=== PATIENT | female | born 1945 | race Caucasian/White ===

== ENCOUNTER 2023-03-17 15:54 | Emergency (ER) | payer MEDICARE ==
[2023-03-17] MEDS ORDERED: Lidocaine 4% Cream 5 GM TUBE w/ Tegaderm ONE (16:07)
[2023-03-17] MEDS ORDERED: Boostrix 0.5 ML (Tdap) VIAL (>/=7 yrs of age) ONE (16:09)
[2023-03-17] MEDS ORDERED: HYDROcodone/Acetaminophen 10/325 mg Tablet ONE (16:45)
[2023-03-17] MEDS ORDERED: Bacitracin 1 PK ONE (16:45)
== END 2023-03-17 17:00 | disposition home or self-care (01) ==
LOC: BURERS 15:54
DX: S32.030A Wedge compression fracture of third lumbar vertebra, initial encounter for closed fracture (principal); S32.040A Wedge compression fracture of fourth lumbar vertebra, initial encounter for closed fracture; S32.050A Wedge compression fracture of fifth lumbar vertebra, initial encounter for closed fracture; S01.01XA Laceration without foreign body of scalp, initial encounter; S09.90XA Unspecified injury of head, initial encounter; S90.414A Abrasion, right lesser toe(s), initial encounter; W22.03XA Walked into furniture, initial encounter; Z86.718 Personal history of other venous thrombosis and embolism; I10 Essential (primary) hypertension; Z79.01 Long term (current) use of anticoagulants; Z86.711 Personal history of pulmonary embolism; Z79.899 Other long term (current) drug therapy
CPT/HCPCS: 12002; 70450; 72125; 72131; 90471; 90715

== ENCOUNTER 2023-05-17 23:09 | Inpatient (IN) | payer MEDICARE ==
[2023-05-17 23:43] LABS: #Basophils 0.1 thou/uL (0.0-0.2); #Eosinphils 0.1 thou/uL (0.0-0.7); #Lymphocytes 2.5 thou/uL (1.20-3.40); #Monocytes 0.8 thou/uL (0.11-0.59); %Basophils 0.9 % (0.0-1.0); %Lymphocytes 20.3 % (21.0-51.0); %Monocytes 6.1 % (0.0-10.0); %Neutrophils 71.7 % (42.0-75.0); Hemoglobin 15.2 g/dL (12.0-16.0); Mean Corpuscular HGB CONC 33.6 g/dL (32.0-36.0); Mean Corpuscular Hemoglobin 30.3 pg (27.0-31.0); Mean Corpuscular Volume 90.2 fl (78.0-98.0); Mean Platelet Volume 8.6 fL (7.4-10.4); Platelet Count 227 10x3/uL (130-400); RBC Distribution Width 13.4 % (11.5-14.5); White Blood Cell (WBC) Count 12.5 10x3/uL (4.8-10.8)
[2023-05-17] MEDS ORDERED: Famotidine/PF 20 mg/2ml Vial ONE (23:45)
[2023-05-17] MEDS ORDERED: Vancomycin 1 GM VIAL ONE (23:45)
[2023-05-17] MEDS ORDERED: Ondansetron PF 4 MG/2 ML Vial ONE (23:45)
[2023-05-17] MEDS ORDERED: metroNIDAZOLE 500 MG/100 ML BAG ONE (23:59)
[2023-05-18] LABS: ALT (SGPT) 38 U/L (8-55); AST (SGOT) 39 U/L (5-34); Albumin 3.4 g/dL (3.4-4.8); Alkaline Phosphatase 136 U/L (40-110); Anion Gap 18 mmol/L (10-20); BUN (Urea Nitrogen) 18 mg/dL (9.8-20.1); Bilirubin, Total 1.2 mg/dL (0.2-1.2); Calc. Creatinine Clearance 0 mL/min (70-130); Calcium 9.5 mg/dL (7.8-10.44); Carbon Dioxide 20 mmol/L (23-31); Chloride 105 mmol/L (98-107); Estimated GFR 62; Globulin 3.5 g/dL (2.4-3.5); Glucose 107 mg/dL (83-110); Lipase 26 U/L (8-78); Potassium 3.7 mmol/L (3.5-5.1); Protein, Total 6.9 g/dL (5.8-8.1); Sodium 139 mmol/L (136-145)
[2023-05-18] MEDS ORDERED: Ondansetron ODT 4 MG TAB SL PRN (02:15)
[2023-05-18] MEDS ORDERED: Acetaminophen 325 MG TAB PO PRN (02:15)
[2023-05-18] MEDS ORDERED: Ondansetron PF 4 MG/2 ML Vial IVP PRN (02:15)
[2023-05-18] MEDS: Dextrose 5 % And 0.9 % NaCl 1,000 ML IV SCH ×2 (02:16→12:48)
[2023-05-18 04:16] VITALS: BMI 53.8
[2023-05-18 04:35] LABS: Bilirubin Negative (Negative); Blood, Urine Small (Negative); Clarity Clear (Clear); Glucose, Urine (Dipstick) Negative (Negative); Ketone, Urine Negative (Negative); Leukocyte Small (Negative); Nitrite Negative (Negative); Protein, Urine (Dipstick) Negative (Neg-Trace); Urobilinogen 0.2 mg/dL (Less than 2); pH, Urine 5.5 (5.0-9.0)
[2023-05-18 04:43] LABS: CAUTI Indications for Culture Pelvic or flank pain; RBC/HPF 0-3 HPF (0-3); Squamous Epithelial 0-3 HPF (0-3)
[2023-05-18 04:44] LABS: Bacteria/HPF Rare-Few HPF (None Seen); Yeast-Budding 1+ HPF (None Seen)
[2023-05-18 04:45] LABS: Urine Culture Reflex No No
[2023-05-18] MEDS ORDERED: Levothyroxine Sodium 100 MCG TAB PO SCH (08:45)
[2023-05-18] MEDS ORDERED: Dicyclomine 20 MG TAB PO PRN (08:53)
[2023-05-18] MEDS ORDERED: Mometasone/Formoterol 200/5 60 PUFF INH SCH (09:00)
[2023-05-18] MEDS ORDERED: metroNIDAZOLE 250 MG TAB PO SCH (09:00)
[2023-05-18] MEDS: Montelukast Sodium 10 mg Tablet PO SCH (09:36)
[2023-05-18] MEDS: Lisinopril 20 MG TAB PO SCH (09:37)
[2023-05-18] MEDS: Mometasone/Formoterol 60 PUFF AER INH SCH ×2 (09:37→20:47)
[2023-05-18] MEDS: Colestipol 1 GM TAB PO SCH ×2 (09:40→20:46)
[2023-05-18] MEDS: Rivaroxaban 10 MG TAB PO SCH (19:45)
[2023-05-18] MEDS: Nystatin Cream 15 GM TUBE TOP SCH (20:47)
[2023-05-18] MEDS: Acetaminophen 500 MG TAB PO PRN (20:48)
[2023-05-18] MEDS: Sodium Chloride 0.9% 1,000 ML IV SCH (20:59)
[2023-05-18] MEDS: Benzonatate 100 MG CAP PO PRN (21:30)
[2023-05-19] MEDS: Levothyroxine Sodium 100 MCG TAB PO SCH (05:46)
[2023-05-19] MEDS: Lisinopril 20 MG TAB PO SCH (09:53)
[2023-05-19] MEDS: Colestipol 1 GM TAB PO SCH ×2 (09:53→18:23)
[2023-05-19] MEDS: Mometasone/Formoterol 60 PUFF AER INH SCH ×2 (09:54→21:21)
[2023-05-19] MEDS: Montelukast Sodium 10 mg Tablet PO SCH (09:55)
[2023-05-19] MEDS: Nystatin Cream 15 GM TUBE TOP SCH ×3 (09:56→21:23)
[2023-05-19] MEDS: Sodium Chloride 0.9% 1,000 ML IV SCH (10:02)
[2023-05-19] MEDS: Acetaminophen 500 MG TAB PO PRN (10:06)
[2023-05-19] MEDS: Vancomycin HCl 25 MG/ML ORAL SOLN PO SCH ×3 (13:13→23:47)
[2023-05-19] MEDS: Guaifenesin DM 100-10/5 ML UDCUP PO PRN (13:22)
[2023-05-19] MEDS: Rivaroxaban 10 MG TAB PO SCH (17:08)
[2023-05-20] MEDS: Vancomycin HCl 25 MG/ML ORAL SOLN PO SCH ×3 (04:53→17:24)
[2023-05-20] MEDS: Levothyroxine Sodium 100 MCG TAB PO SCH (04:53)
[2023-05-20] MEDS: Guaifenesin DM 100-10/5 ML UDCUP PO PRN ×2 (04:53→10:55)
[2023-05-20] MEDS: Nystatin Cream 15 GM TUBE TOP SCH ×2 (09:13→21:54)
[2023-05-20] MEDS: Mometasone/Formoterol 60 PUFF AER INH SCH ×2 (09:14→21:45)
[2023-05-20] MEDS: Lisinopril 20 MG TAB PO SCH (09:16)
[2023-05-20] MEDS: Montelukast Sodium 10 mg Tablet PO SCH (09:17)
[2023-05-20] MEDS: Colestipol 1 GM TAB PO SCH ×2 (12:56→21:40)
[2023-05-20] MEDS: Rivaroxaban 10 MG TAB PO SCH (16:57)
[2023-05-20] MEDS: Benzonatate 100 MG CAP PO PRN (22:10)
[2023-05-21] MEDS: Temazepam 15 MG CAP PO PRN ×2 (00:38→20:53)
[2023-05-21] MEDS: Vancomycin HCl 25 MG/ML ORAL SOLN PO SCH ×4 (00:39→16:44)
[2023-05-21] MEDS: Levothyroxine Sodium 100 MCG TAB PO SCH (05:20)
[2023-05-21 05:22] LABS: #Basophils 0.1 thou/uL (0.0-0.2); #Eosinphils 0.1 thou/uL (0.0-0.7); #Lymphocytes 1.5 thou/uL (1.20-3.40); #Monocytes 0.4 thou/uL (0.11-0.59); #Neutrophils 4.6 thou/uL (1.40-6.50); %Basophils 1.2 % (0.0-1.0); %Eosinophils 1.4 % (0.0-10.0); %Lymphocytes 21.9 % (21.0-51.0); %Monocytes 6.5 % (0.0-10.0); Hemoglobin 12.7 g/dL (12.0-16.0); Mean Corpuscular HGB CONC 33.6 g/dL (32.0-36.0); Mean Corpuscular Hemoglobin 30.5 pg (27.0-31.0); Mean Corpuscular Volume 90.9 fl (78.0-98.0); Platelet Count 134 10x3/uL (130-400); Red Blood Cell (RBC) Count 4.17 mill/uL (4.20-5.40); White Blood Cell (WBC) Count 6.7 10x3/uL (4.8-10.8)
[2023-05-21 05:34] LABS: ALT (SGPT) 32 U/L (8-55); AST (SGOT) 34 U/L (5-34); Albumin 2.8 g/dL (3.4-4.8); Alkaline Phosphatase 115 U/L (40-110); Anion Gap 10 mmol/L (10-20); BUN (Urea Nitrogen) 12 mg/dL (9.8-20.1); Bilirubin, Total 0.6 mg/dL (0.2-1.2); Calc. Creatinine Clearance 161 mL/min (70-130); Calcium 9.1 mg/dL (7.8-10.44); Carbon Dioxide 23 mmol/L (23-31); Chloride 111 mmol/L (98-107); Estimated GFR 88; Globulin 2.6 g/dL (2.4-3.5); Glucose 98 mg/dL (83-110); Potassium 4.3 mmol/L (3.5-5.1); Protein, Total 5.4 g/dL (5.8-8.1); Sodium 140 mmol/L (136-145)
[2023-05-21] MEDS: Colestipol 1 GM TAB PO SCH ×2 (08:04→15:07)
[2023-05-21] MEDS: Lisinopril 20 MG TAB PO SCH (09:05)
[2023-05-21] MEDS: Montelukast Sodium 10 mg Tablet PO SCH (09:05)
[2023-05-21] MEDS: Nystatin Cream 15 GM TUBE TOP SCH ×2 (09:06→20:53)
[2023-05-21] MEDS: Mometasone/Formoterol 60 PUFF AER INH SCH ×2 (09:07→20:54)
[2023-05-21] MEDS: Benzonatate 100 MG CAP PO PRN (12:23)
[2023-05-21] MEDS: Acetaminophen 500 MG TAB PO PRN (12:26)
[2023-05-21 14:10] VITALS: BP 155/68; TEMP 97.8
[2023-05-21] MEDS: Rivaroxaban 10 MG TAB PO SCH (16:45)
== END 2023-05-21 21:45 | disposition swing bed (61) | DRG 372 ==
LOC: BURERS 23:09 → BURMED 05-18 01:35 → BURERS 05-18 01:48 → BURMED 05-21 01:06
PROVIDERS: ADMIT Family Medicine; ATTEND Family Medicine
DX: A04.72 Enterocolitis due to Clostridium difficile, not specified as recurrent (principal); Z68.43 Body mass index [BMI] 50.0-59.9, adult; E86.0 Dehydration; J45.909 Unspecified asthma, uncomplicated; I10 Essential (primary) hypertension; E03.9 Hypothyroidism, unspecified; G89.29 Other chronic pain; E66.01 Morbid (severe) obesity due to excess calories; R05.9 Cough, unspecified; G47.00 Insomnia, unspecified; Z86.718 Personal history of other venous thrombosis and embolism; Z86.711 Personal history of pulmonary embolism; Z98.890 Other specified postprocedural states; Z90.49 Acquired absence of other specified parts of digestive tract; Z90.710 Acquired absence of both cervix and uterus; Z98.51 Tubal ligation status; Z88.5 Allergy status to narcotic agent
CPT/HCPCS: 36415; 80053; 81001; 83690; 85025; 94664; 96365; 96367; 96375; J2405; J3370; J7042; J7050; S0028

== ENCOUNTER 2023-05-21 17:37 | Inpatient (IN) | payer MEDICARE ==
[2023-05-21] MEDS ORDERED: Dicyclomine 20 MG TAB PO PRN (22:19)
[2023-05-21] MEDS ORDERED: Benzonatate 100 MG CAP PO PRN (22:19)
[2023-05-21 22:29] VITALS: BMI 53.6
[2023-05-21] MEDS ORDERED: DICYCLOMINE 10 MG PO PRN (22:34)
[2023-05-21] MEDS ORDERED: Acetaminophen 500 MG TAB PO PRN (22:34)
[2023-05-21] MEDS ORDERED: Guaifenesin DM 100-10/5 ML UDCUP PO PRN (22:34)
[2023-05-21] MEDS ORDERED: Temazepam 15 MG CAP PO PRN (22:34)
[2023-05-21] MEDS ORDERED: Bisacodyl 10 MG SUPP PR PRN (22:36)
[2023-05-21] MEDS ORDERED: Rivaroxaban 10 MG TAB PO SCH (22:36)
[2023-05-21] MEDS ORDERED: Bisacodyl 5 MG TAB PO PRN (22:36)
[2023-05-21] MEDS ORDERED: Vancomycin HCl 25 MG/ML ORAL SOLN PO SCH (23:59)
[2023-05-22] MEDS: Vancomycin HCl 25 MG/ML ORAL SOLN PO SCH ×4 (01:04→17:24)
[2023-05-22] MEDS: Levothyroxine Sodium 100 MCG TAB PO SCH (05:59)
[2023-05-22] MEDS: Colestipol 1 GM TAB PO SCH ×2 (07:49→16:04)
[2023-05-22] MEDS ORDERED: Non-Formulary Item 1 EACH (Rivaroxaban [Xarelto] 20 MG Tablet) PO SCH (09:00)
[2023-05-22] MEDS ORDERED: Non-Formulary Item 1 EACH (Benzonatate [Benzonatate] 200 MG Capsule) PO SCH (09:00)
[2023-05-22] MEDS ORDERED: Hydrochlorothiazide 25 MG TAB PO SCH (09:00)
[2023-05-22] MEDS ORDERED: Montelukast Sodium 10 mg Tablet PO SCH (09:00)
[2023-05-22] MEDS ORDERED: Nystatin Cream 15 GM TUBE TOP SCH (09:00)
[2023-05-22] MEDS ORDERED: Non-Formulary Item 1 EACH (Fluticasone/Vilanterol [Breo Ellipta] 100 MCG/25 MCG Blst.W.De IH SCH (09:00)
[2023-05-22] MEDS ORDERED: Non-Formulary Item 1 EACH (Lisinopril [Lisinopril] 40 MG Tablet) PO SCH (09:00)
[2023-05-22] MEDS ORDERED: Colestipol 1 GM TAB PO SCH (09:00)
[2023-05-22] MEDS ORDERED: Non-Formulary Item 1 EACH (Esomeprazole Magnesium [Nexium] 20 MG Capsule.Dr) PO SCH (09:00)
[2023-05-22] MEDS ORDERED: Levothyroxine Sodium 100 MCG TAB PO SCH (09:00)
[2023-05-22] MEDS: Montelukast Sodium 10 mg Tablet PO SCH (11:51)
[2023-05-22] MEDS: Lisinopril 20 MG TAB PO SCH (11:51)
[2023-05-22] MEDS: Mometasone/Formoterol 60 PUFF AER INH SCH ×2 (11:53→20:33)
[2023-05-22] MEDS: Nystatin Cream 15 GM TUBE TOP SCH ×2 (11:54→20:28)
[2023-05-22] MEDS: Acetaminophen 500 MG TAB PO PRN ×2 (15:03→20:26)
[2023-05-22] MEDS: Temazepam 15 MG CAP PO PRN (20:27)
[2023-05-22] MEDS: Rivaroxaban 10 MG TAB PO SCH (20:27)
[2023-05-23] MEDS: Vancomycin HCl 25 MG/ML ORAL SOLN PO SCH ×4 (00:15→18:16)
[2023-05-23] MEDS: Levothyroxine Sodium 100 MCG TAB PO SCH (05:18)
[2023-05-23] MEDS: Acetaminophen 500 MG TAB PO PRN ×2 (05:38→15:57)
[2023-05-23] MEDS: Colestipol 1 GM TAB PO SCH ×2 (07:50→15:58)
[2023-05-23] MEDS: Lisinopril 20 MG TAB PO SCH (12:12)
[2023-05-23] MEDS: Montelukast Sodium 10 mg Tablet PO SCH (12:12)
[2023-05-23] MEDS: Mometasone/Formoterol 60 PUFF AER INH SCH ×2 (12:14→21:11)
[2023-05-23] MEDS: Nystatin Cream 15 GM TUBE TOP SCH ×2 (12:16→21:14)
[2023-05-23] MEDS: Vancomycin HCl 125 MG/5 ML (BATCHED) UDCUP PO SCH (18:19)
[2023-05-23] MEDS: Rivaroxaban 10 MG TAB PO SCH (21:11)
[2023-05-23] MEDS: Temazepam 15 MG CAP PO PRN (21:11)
[2023-05-24] MEDS: Vancomycin HCl 125 MG/5 ML (BATCHED) UDCUP PO SCH ×3 (00:22→11:39)
[2023-05-24] MEDS: Acetaminophen 500 MG TAB PO PRN ×2 (02:13→21:14)
[2023-05-24] MEDS: Levothyroxine Sodium 100 MCG TAB PO SCH (05:41)
[2023-05-24] MEDS: Colestipol 1 GM TAB PO SCH ×2 (07:38→16:32)
[2023-05-24] MEDS: Lisinopril 20 MG TAB PO SCH (09:00)
[2023-05-24] MEDS: Montelukast Sodium 10 mg Tablet PO SCH (09:00)
[2023-05-24] MEDS: Nystatin Cream 15 GM TUBE TOP SCH ×2 (09:01→21:13)
[2023-05-24] MEDS: Mometasone/Formoterol 60 PUFF AER INH SCH ×2 (09:02→21:12)
[2023-05-24] MEDS: Vancomycin HCl 25 MG/ML ORAL SOLN PO SCH (16:33)
[2023-05-24] MEDS: Rivaroxaban 10 MG TAB PO SCH (21:14)
[2023-05-24] MEDS: Temazepam 15 MG CAP PO PRN (21:15)
[2023-05-25] MEDS: Vancomycin HCl 25 MG/ML ORAL SOLN PO SCH ×5 (00:23→23:17)
[2023-05-25] MEDS: Levothyroxine Sodium 100 MCG TAB PO SCH (05:03)
[2023-05-25] MEDS ORDERED: Colestipol 1 GM TAB PO SCH (10:00)
[2023-05-25] MEDS: Lisinopril 20 MG TAB PO SCH (12:25)
[2023-05-25] MEDS: Montelukast Sodium 10 mg Tablet PO SCH (12:27)
[2023-05-25] MEDS: Mometasone/Formoterol 60 PUFF AER INH SCH ×2 (12:30→20:42)
[2023-05-25] MEDS: Nystatin Cream 15 GM TUBE TOP SCH ×2 (12:31→20:42)
[2023-05-25] MEDS: Acetaminophen 500 MG TAB PO PRN ×2 (15:18→20:41)
[2023-05-25] MEDS: Colestipol 1 GM TAB PO SCH (16:06)
[2023-05-25] MEDS: Rivaroxaban 10 MG TAB PO SCH (20:40)
[2023-05-25] MEDS: Temazepam 15 MG CAP PO PRN (20:41)
[2023-05-26] MEDS: Vancomycin HCl 25 MG/ML ORAL SOLN PO SCH ×4 (05:11→23:05)
[2023-05-26] MEDS: Levothyroxine Sodium 100 MCG TAB PO SCH (05:11)
[2023-05-26] MEDS: Colestipol 1 GM TAB PO SCH ×2 (05:58→16:06)
[2023-05-26] MEDS: Mometasone/Formoterol 60 PUFF AER INH SCH ×2 (10:01→20:56)
[2023-05-26] MEDS: Nystatin Cream 15 GM TUBE TOP SCH ×2 (10:02→20:57)
[2023-05-26] MEDS: Montelukast Sodium 10 mg Tablet PO SCH (10:03)
[2023-05-26] MEDS: Lisinopril 20 MG TAB PO SCH (10:03)
[2023-05-26] MEDS ORDERED: Hydrochlorothiazide 25 MG TAB PO SCH (12:00)
[2023-05-26] MEDS: Acetaminophen 500 MG TAB PO PRN (13:43)
[2023-05-26] MEDS: Rivaroxaban 10 MG TAB PO SCH (20:56)
[2023-05-26] MEDS: Temazepam 15 MG CAP PO PRN (20:56)
[2023-05-27] MEDS: Vancomycin HCl 25 MG/ML ORAL SOLN PO SCH ×3 (05:03→18:11)
[2023-05-27] MEDS: Levothyroxine Sodium 100 MCG TAB PO SCH (05:04)
[2023-05-27] MEDS: Colestipol 1 GM TAB PO SCH ×2 (06:01→15:53)
[2023-05-27] MEDS: Lisinopril 20 MG TAB PO SCH (10:15)
[2023-05-27] MEDS: Acetaminophen 500 MG TAB PO PRN (10:15)
[2023-05-27] MEDS: Montelukast Sodium 10 mg Tablet PO SCH (10:15)
[2023-05-27] MEDS: Hydrochlorothiazide 25 MG TAB PO SCH (10:16)
[2023-05-27] MEDS: Guaifenesin DM 100-10/5 ML UDCUP PO PRN (10:21)
[2023-05-27] MEDS: Mometasone/Formoterol 60 PUFF AER INH SCH ×2 (10:21→21:15)
[2023-05-27] MEDS: Nystatin Cream 15 GM TUBE TOP SCH ×2 (10:21→21:15)
[2023-05-27] MEDS: Rivaroxaban 10 MG TAB PO SCH (21:13)
[2023-05-28] MEDS: Vancomycin HCl 25 MG/ML ORAL SOLN PO SCH ×5 (00:03→23:53)
[2023-05-28] MEDS: Temazepam 15 MG CAP PO PRN ×2 (00:08→20:22)
[2023-05-28] MEDS: Acetaminophen 500 MG TAB PO PRN ×2 (03:34→13:21)
[2023-05-28] MEDS: Colestipol 1 GM TAB PO SCH ×2 (05:24→16:20)
[2023-05-28] MEDS: Levothyroxine Sodium 100 MCG TAB PO SCH (05:24)
[2023-05-28] MEDS: Nebivolol HCl 5 MG TAB PO SCH (09:36)
[2023-05-28] MEDS: Lisinopril 20 MG TAB PO SCH (09:37)
[2023-05-28] MEDS: Mometasone/Formoterol 60 PUFF AER INH SCH ×2 (09:37→20:20)
[2023-05-28] MEDS: Montelukast Sodium 10 mg Tablet PO SCH (09:37)
[2023-05-28] MEDS: Hydrochlorothiazide 25 MG TAB PO SCH (09:39)
[2023-05-28] MEDS: Nystatin Cream 15 GM TUBE TOP SCH ×2 (09:39→20:20)
[2023-05-28] MEDS ORDERED: Colestipol 1 GM TAB PO SCH ×2 (16:30→22:00)
[2023-05-28] MEDS: Guaifenesin DM 100-10/5 ML UDCUP PO PRN (20:22)
[2023-05-28] MEDS: Rivaroxaban 10 MG TAB PO SCH (20:22)
[2023-05-29] MEDS: Levothyroxine Sodium 100 MCG TAB PO SCH (05:09)
[2023-05-29] MEDS: Vancomycin HCl 25 MG/ML ORAL SOLN PO SCH ×4 (05:09→23:16)
[2023-05-29] MEDS: Colestipol 1 GM TAB PO SCH ×2 (06:06→15:48)
[2023-05-29 09:19] LABS: #Eosinphils 0.2 thou/uL (0.0-0.7); #Monocytes 0.4 thou/uL (0.11-0.59); #Neutrophils 4.1 thou/uL (1.40-6.50); %Basophils 0.6 % (0.0-1.0); %Eosinophils 2.7 % (0.0-10.0); %Lymphocytes 16.9 % (21.0-51.0); %Monocytes 6.7 % (0.0-10.0); %Neutrophils 73.1 % (42.0-75.0); Hemoglobin 12.5 g/dL (12.0-16.0); Mean Corpuscular HGB CONC 32.6 g/dL (32.0-36.0); Mean Corpuscular Hemoglobin 30.3 pg (27.0-31.0); Mean Corpuscular Volume 93.1 fl (78.0-98.0); Mean Platelet Volume 9.8 fL (7.4-10.4); Platelet Adequacy Comment Appears Adequate; Platelet Count 107 10x3/uL (130-400); RBC Distribution Width 14.2 % (11.5-14.5); Red Blood Cell (RBC) Count 4.12 mill/uL (4.20-5.40); White Blood Cell (WBC) Count 5.6 10x3/uL (4.8-10.8)
[2023-05-29 09:20] LABS: MDiff Complete? YES; Manual Diff?? NO
[2023-05-29] MEDS: Lisinopril 20 MG TAB PO SCH (09:50)
[2023-05-29] MEDS: Hydrochlorothiazide 25 MG TAB PO SCH (09:52)
[2023-05-29] MEDS: Montelukast Sodium 10 mg Tablet PO SCH (09:52)
[2023-05-29] MEDS: Acetaminophen 500 MG TAB PO PRN ×2 (09:52→15:43)
[2023-05-29] MEDS: Nystatin Cream 15 GM TUBE TOP SCH ×2 (09:53→20:11)
[2023-05-29] MEDS: Nebivolol HCl 5 MG TAB PO SCH (09:53)
[2023-05-29] MEDS: Mometasone/Formoterol 60 PUFF AER INH SCH ×2 (09:53→20:06)
[2023-05-29] MEDS: Guaifenesin DM 100-10/5 ML UDCUP PO PRN ×2 (10:03→20:09)
[2023-05-29] MEDS: Rivaroxaban 10 MG TAB PO SCH (20:07)
[2023-05-29] MEDS: Temazepam 15 MG CAP PO PRN (20:08)
[2023-05-30] MEDS: Levothyroxine Sodium 100 MCG TAB PO SCH (05:04)
[2023-05-30] MEDS: Vancomycin HCl 25 MG/ML ORAL SOLN PO SCH ×2 (05:04→11:41)
[2023-05-30] MEDS: Colestipol 1 GM TAB PO SCH (06:13)
[2023-05-30 06:27] VITALS: TEMP 97.7
[2023-05-30] MEDS: Nebivolol HCl 5 MG TAB PO SCH (08:36)
[2023-05-30] MEDS: Montelukast Sodium 10 mg Tablet PO SCH (08:36)
[2023-05-30] MEDS: Lisinopril 20 MG TAB PO SCH (08:36)
[2023-05-30] MEDS: Nystatin Cream 15 GM TUBE TOP SCH (08:37)
[2023-05-30] MEDS: Hydrochlorothiazide 25 MG TAB PO SCH (08:41)
[2023-05-30] MEDS: Mometasone/Formoterol 60 PUFF AER INH SCH (08:42)
[2023-05-30 08:44] VITALS: BP 172/74
== END 2023-05-30 13:05 | disposition home or self-care (01) | DRG 948 ==
LOC: BURMED 21:45 → UNDOADMIN 22:03 → BURMED 22:03
PROVIDERS: ADMIT Family Medicine; ATTEND Family Medicine
DX: R53.1 Weakness (principal); E86.0 Dehydration; J45.909 Unspecified asthma, uncomplicated; I10 Essential (primary) hypertension; E03.9 Hypothyroidism, unspecified; G89.29 Other chronic pain; Z88.5 Allergy status to narcotic agent; Z86.711 Personal history of pulmonary embolism; Z90.710 Acquired absence of both cervix and uterus; Z98.51 Tubal ligation status; Z90.49 Acquired absence of other specified parts of digestive tract; Z98.49 Cataract extraction status, unspecified eye; Z79.51 Long term (current) use of inhaled steroids; Z79.890 Hormone replacement therapy; Z79.899 Other long term (current) drug therapy; Z79.01 Long term (current) use of anticoagulants
CPT/HCPCS: 36415; 85025; 94664

== ENCOUNTER 2023-06-18 20:04 | Outpatient (CLI) | payer MEDICARE | END 2023-06-18 20:05 | disposition home or self-care (01) | LOC: BURRAD 20:04 | PROVIDERS: ATTEND Neurological Surgery | DX: M48.56XA Collapsed vertebra, not elsewhere classified, lumbar region, initial encounter for fracture (principal) | CPT/HCPCS: 72100 ==

== ENCOUNTER 2025-05-18 15:52 | Emergency (ER) | payer MEDICARE ==
[~2025-05-18 15:52] MED LIST: Iopamidol 370 76% 100 ML VIAL ONE
[2025-05-18 16:22] LABS: #Basophils 0.1 thou/uL (0.0-0.2); #Eosinophils 0.1 thou/uL (0.0-0.7); #Lymphocytes 1.9 thou/uL (1.20-3.40); #Monocytes 0.7 thou/uL (0.11-0.59); %Basophils 0.9 % (0.0-1.0); %Lymphocytes 21.9 % (21.0-51.0); %Monocytes 7.5 % (0.0-10.0); %Neutrophils 68.6 % (42.0-75.0); Hematocrit 42.1 % (36.0-47.0); Hemoglobin 13.7 g/dL (12.0-16.0); Mean Corpuscular HGB CONC 32.6 g/dL (32.0-36.0); Mean Corpuscular Hemoglobin 26.1 pg (27.0-31.0); Mean Corpuscular Volume 80.1 fl (78.0-98.0); Mean Platelet Volume 7.4 fL (7.4-10.4); Platelet Count 169 10x3/uL (130-400); RBC Distribution Width 13.8 % (11.5-14.5); Red Blood Cell (RBC) Count 5.25 mill/uL (4.20-5.40); White Blood Cell (WBC) Count 8.8 10x3/uL (4.8-10.8)
[2025-05-18 16:42] LABS: ALT (SGPT) 16 U/L (Less than 34); AST (SGOT) 26 U/L (11-34); Albumin 3.4 g/dL (3.1-4.5); Alkaline Phosphatase 112 U/L (40-110); Anion Gap 16 mmol/L (10-20); BUN (Urea Nitrogen) 16 mg/dL (9.8-20.1); Bilirubin, Total 1.1 mg/dL (0.3-1.2); Calc. Creatinine Clearance 0 mL/min (70-130); Calcium 9.4 mg/dL (7.8-10.44); Carbon Dioxide 27 mmol/L (23-31); Chloride 103 mmol/L (98-107); Estimated GFR 74; Globulin 3.6 g/dL (2.4-3.5); Glucose 109 mg/dL (83-110); Sodium 142 mmol/L (136-145)
[2025-05-18 16:43] LABS: Troponin I Less than 0.010 ng/mL (< 0.028)
[2025-05-18] MEDS ORDERED: dilTIAZem 25 MG/5 ML VIAL ONE (16:58)
[2025-05-18] MEDS ORDERED: dilTIAZem 125 MG/25 ML SDV ONE (18:02)
[2025-05-18 19:08] LABS: Bilirubin Negative (Negative); Blood, Urine Small (Negative); Clarity Clear (Clear); Glucose, Urine (Dipstick) Negative (Negative); Ketone, Urine Negative (Negative); Leukocyte Trace (Negative); Nitrite Negative (Negative); Protein, Urine (Dipstick) Negative (Neg-Trace); Specific Gravity, Urine 1.015 (1.005-1.030); Urobilinogen 0.2 mg/dL (Less than 2); pH, Urine 7.5 (5.0-9.0)
[2025-05-18 19:15] LABS: Bacteria/HPF 1+ HPF (None Seen); CAUTI Indications for Culture Alt mental st,lethar; RBC/HPF 0-3 HPF (0-3); Squamous Epithelial 0-3 HPF (0-3); WBC/HPF 0-3 HPF (0-3)
[2025-05-18 19:16] LABS: Urine Culture Reflex No No
== END 2025-05-18 19:57 | disposition short-term general hospital (02) ==
LOC: BURERS 15:52
DX: I48.91 Unspecified atrial fibrillation (principal); R60.0 Localized edema; I10 Essential (primary) hypertension; J45.909 Unspecified asthma, uncomplicated; Z79.899 Other long term (current) drug therapy
CPT/HCPCS: 71045; 71275; 80053; 81001; 83880; 84484; 85025; 85379; 93005; 96374; 96376; Q9967

== ENCOUNTER 2025-11-17 07:02 | Emergency (ER) | payer MEDICARE ==
[2025-11-17 07:35] LABS: #Basophils 0.1 thou/uL (0.0-0.2); #Eosinophils 1.2 thou/uL (0.0-0.7); #Lymphocytes 2.1 thou/uL (1.20-3.40); #Monocytes 0.8 thou/uL (0.11-0.59); #Neutrophils 7.9 thou/uL (1.40-6.50); %Basophils 1.1 % (0.0-1.0); %Eosinophils 9.8 % (0.0-10.0); %Lymphocytes 17.5 % (21.0-51.0); %Monocytes 6.2 % (0.0-10.0); %Neutrophils 65.5 % (42.0-75.0); Hematocrit 45.4 % (36.0-47.0); Hemoglobin 13.9 g/dL (12.0-16.0); Mean Corpuscular Hemoglobin 29.8 pg (27.0-31.0); Mean Corpuscular Volume 97.2 fl (78.0-98.0); Platelet Count 184 10x3/uL (130-400); Red Blood Cell (RBC) Count 4.67 mill/uL (4.20-5.40); White Blood Cell (WBC) Count 12.1 10x3/uL (4.8-10.8)
[2025-11-17 07:54] LABS: INR-International Normal Ratio 1.4; Prothrombin Time 17.1 sec (12.0-14.7)
[2025-11-17 07:55] LABS: PTT 40.0 sec (22.9-36.1)
[2025-11-17 08:02] LABS: ALT (SGPT) 26 U/L (Less than 34); AST (SGOT) 34 U/L (11-34); Albumin 2.7 g/dL (3.1-4.5); Alkaline Phosphatase 155 U/L (40-110); Anion Gap 16 mmol/L (10-20); BUN (Urea Nitrogen) 13 mg/dL (9.8-20.1); Bilirubin, Total 1.0 mg/dL (0.3-1.2); Calc. Creatinine Clearance 0 mL/min (70-130); Calcium 8.6 mg/dL (7.8-10.44); Carbon Dioxide 31 mmol/L (23-31); Chloride 102 mmol/L (98-107); Globulin 3.7 g/dL (2.4-3.5); Glucose 109 mg/dL (83-110); Potassium 4.6 mmol/L (3.5-5.1); Sodium 144 mmol/L (136-145)
[2025-11-17 08:03] LABS: Troponin I 0.036 ng/mL (< 0.028)
[2025-11-17] MEDS ORDERED: Furosemide 40 MG (4 mL) VIAL ONE (08:21)
[2025-11-17 13:16] LABS: Troponin I 0.032 ng/mL (< 0.028)
== END 2025-11-17 13:13 | disposition short-term general hospital (02) ==
LOC: BURERS 07:02
DX: I11.0 Hypertensive heart disease with heart failure (principal); I50.9 Heart failure, unspecified; I48.91 Unspecified atrial fibrillation; J45.909 Unspecified asthma, uncomplicated; Z79.01 Long term (current) use of anticoagulants; Z79.51 Long term (current) use of inhaled steroids
CPT/HCPCS: 36415; 71045; 80053; 83605; 83880; 84484; 85025; 85610; 85730; 87040; 87428; 93005; 94760; J1940